=== PATIENT | female | born 1975 | race Two or more races ===

== ENCOUNTER 2020-11-28 14:01 | Emergency (ER) | payer OTHER | END 2020-11-28 14:51 | disposition home or self-care (01) | LOC: JVIRT 14:01 | DX: Z20.822 Contact with and (suspected) exposure to COVID-19 (principal) | CPT/HCPCS: C9803; G2012-GT; U0003 ==

== ENCOUNTER 2021-05-28 15:42 | Observation (INO) | payer OTHER ==
[2021-05-28 16:47] LABS: BASO % 0.9 % (0-2.0); EOS % 1.1 % (0-4.5); HEMOGLOBIN 12.3 GM/dl (10.7-15.3); LYMPH % 23.6 % (8-40); MCH 28.9 pg (25.7-33.7); MCHC 33.2 g/dl (32.0-36.0); MEAN CELL VOLUME 86.8 fl (80-96); MEAN PLT VOLUME 9.9 fl (7.5-11.1); MONO % 6.6 % (3.8-10.2); NEUT % 67.8 % (42.8-82.8); PLATELET COUNT 254 10^3/uL (134-434); RBC 4.26 M/mm3 (3.60-5.2); RDW 13.4 % (11.6-15.6); WHITE BLOOD COUNT 6.6 K/mm3 (4.0-10.8)
[2021-05-28 16:52] LABS: ALK PHOS 49 U/L (45-117); ANION GAP 9 MMOL/L (8-16); BILIRUBIN,TOTAL 0.6 mg/dl (0.2-1); CALCIUM 9.1 mg/dl (8.5-10); CHLORIDE 102 mmol/L (98-107); CO2 25 mmol/L (21-32); CREATININE 0.6 mg/dl (0.55-1.3); GLUCOSE,RANDOM 103 mg/dl (74-106); SGOT/AST 21 U/L (15-37); SGPT/ALT 12 U/L (13-61); SODIUM 136 mmol/L (136-145); TOT PROT 7.1 g/dl (6.4-8.2)
[2021-05-28 23:14] VITALS: BMI 22.7
[2021-05-28 23:49] LABS: MAGNESIUM 2.2 mg/dL (1.8-2.4)
[2021-05-28 23:53] LABS: PHOSPHOROUS 3.4 mg/dL (2.5-4.9)
[2021-05-29 07:24] LABS: BASO % 1.1 % (0-2.0); EOS % 1.6 % (0-4.5); HEMATOCRIT 35.6 % (32.4-45.2); LYMPH % 26.9 % (8-40); MCH 29.2 pg (25.7-33.7); MCHC 33.7 g/dl (32.0-36.0); MEAN CELL VOLUME 86.8 fl (80-96); MEAN PLT VOLUME 9.5 fl (7.5-11.1); NEUT % 62.4 % (42.8-82.8); PLATELET COUNT 230 10^3/uL (134-434); RBC 4.11 M/mm3 (3.60-5.2); RDW 14.3 % (11.6-15.6); WHITE BLOOD COUNT 6.3 K/mm3 (4.0-10.0)
[2021-05-29 09:25] LABS: MAGNESIUM 2.3 mg/dL (1.8-2.4)
[2021-05-29 09:29] LABS: PHOSPHOROUS 3.8 mg/dL (2.5-4.9)
[2021-05-29 09:51] LABS: ALBUMIN 3.4 g/dl (3.4-5.0); BILIRUBIN,TOTAL 0.5 mg/dL (0.2-1); BLOOD UREA NITROGEN 14.1 mg/dL (7-18); CALCIUM 8.7 mg/dL (8.5-10.1); CREATININE 0.7 mg/dL (0.55-1.3); TOT PROT 6.4 g/dl (6.4-8.2)
[2021-05-29 13:54] VITALS: BP 133/71; PULSE 80; TEMP 98.4
[2021-05-29 14:47] LABS: OPIATES, URI NEGATIVE (NEGATIVE); PHENCYCLIDINE,URINE NEGATIVE (NEGATIVE); URINE AMPHETAMINES NEGATIVE (NEGATIVE)
[2021-05-29 14:48] LABS: COCAINE, UR NEGATIVE (NEGATIVE)
[2021-05-29 14:49] LABS: URINE BENZODIAZEPINES NEGATIVE (NEGATIVE)
[2021-05-29 14:53] LABS: METHADONE, UR NEGATIVE (NEGATIVE); URINE BARBITURATES NEGATIVE (NEGATIVE)
== END 2021-05-29 17:57 | disposition home or self-care (01) ==
LOC: FER 15:42 → INTOOBSV 20:30 → UNDOADMOB 20:30 → J4S 20:30
PROVIDERS: ATTEND Internal Medicine
DX: I49.9 Cardiac arrhythmia, unspecified (principal); R00.2 Palpitations; R07.9 Chest pain, unspecified; Z82.49 Family history of ischemic heart disease and other diseases of the circulatory system
CPT/HCPCS: 36415; 71045-TC-FY; 80053; 80061; 80307; 81003; 81015; 82550; 83036; 83721; 83735; 84100; 84439; 84443; 84484; 84703; 85025; 93005; 93306-TC; 99285-25; C9803; G0378; U0003; U0005

== ENCOUNTER 2022-02-24 09:01 | Emergency (ER) | payer OTHER ==
[2022-02-24 09:09] VITALS: BP 125/96; PULSE 87; TEMP 98.6; BMI 23.4
== END 2022-02-24 09:40 | disposition home or self-care (01) ==
LOC: FER 09:01
DX: R07.0 Pain in throat (principal); J34.89 Other specified disorders of nose and nasal sinuses
CPT/HCPCS: 87804; 99283-25; C9803-CS; U0003; U0005

== ENCOUNTER 2022-11-23 13:36 | Day surgery (SDC) | payer OTHER ==
[2022-11-23] MEDS ORDERED: FERRIC CARBOXYMALTOSE 750 MG in SODIUM CHLORIDE 250 ML IVPB ONE (14:00)
[2022-11-23 14:20] VITALS: TEMP 98
[2022-11-23 16:23] VITALS: BP 110/62; PULSE 72; RESP 18
[2022-11-30] MEDS ORDERED: FERRIC CARBOXYMALTOSE 750 MG in SODIUM CHLORIDE 250 ML IVPB ONE (15:00)
== END 2022-11-23 16:14 | disposition home or self-care (01) ==
LOC: FINFUSION 13:36 → FM/S 13:36 → FINFUSION 16:14
PROC: 3E033GC Introduction of Other Therapeutic Substance into Peripheral Vein, Percutaneous Approach (ICD-10-PCS; principal; 2022-11-23)
DX: D50.9 Iron deficiency anemia, unspecified (principal)
CPT/HCPCS: 96365; J1439

== ENCOUNTER 2022-11-30 15:00 | Day surgery (SDC) | payer OTHER ==
[~2022-11-30 15:00] MED LIST: FERRIC CARBOXYMALTOSE 750 MG in SODIUM CHLORIDE 250 ML IVPB ONE
[2022-11-30 15:24] VITALS: RESP 18; TEMP 98
[2022-11-30 16:23] VITALS: BP 110/56; PULSE 86
== END 2022-11-30 16:24 | disposition home or self-care (01) ==
LOC: FINFUSION 15:00 → FM/S 15:02 → FINFUSION 16:24
PROC: 3E033GC Introduction of Other Therapeutic Substance into Peripheral Vein, Percutaneous Approach (ICD-10-PCS; principal; 2022-11-30)
DX: D50.9 Iron deficiency anemia, unspecified (principal)
CPT/HCPCS: 96365; J1439

== ENCOUNTER 2023-01-12 04:53 | Day surgery (SDC) | payer OTHER ==
[2023-01-07 11:24] VITALS: BMI 24.5
[2023-01-12 13:16] VITALS: TEMP 97.1
[2023-01-12 13:34] VITALS: BP 103/83; PULSE 54; RESP 18
== END 2023-01-12 13:50 | disposition home or self-care (01) ==
LOC: JASU-ENDO 04:53
PROVIDERS: ATTEND Student in an Organized Health Care Education/Training Program
PROC: 0DB78ZX Excision of Stomach, Pylorus, Via Natural or Artificial Opening Endoscopic, Diagnostic (ICD-10-PCS; 2023-01-12)
PROC: 0DB68ZX Excision of Stomach, Via Natural or Artificial Opening Endoscopic, Diagnostic (ICD-10-PCS; 2023-01-12)
PROC: 0DB48ZX Excision of Esophagogastric Junction, Via Natural or Artificial Opening Endoscopic, Diagnostic (ICD-10-PCS; 2023-01-12)
PROC: 0DB98ZX Excision of Duodenum, Via Natural or Artificial Opening Endoscopic, Diagnostic (ICD-10-PCS; principal; 2023-01-12 12:30)
DX: K21.00 Gastro-esophageal reflux disease with esophagitis, without bleeding (principal); K29.50 Unspecified chronic gastritis without bleeding
CPT/HCPCS: 81025; 88305-TC; 88342-TC

== ENCOUNTER 2023-11-17 14:51 | Day surgery (SDC) | payer OTHER ==
[2023-11-17] MEDS ORDERED: FERRIC CARBOXYMALTOSE 750 MG in SODIUM CHLORIDE 250 ML IVPB ONE (15:30)
[2023-11-17 16:50] VITALS: BP 130/68; PULSE 82; RESP 19; TEMP 98.1
== END 2023-11-17 16:30 | disposition home or self-care (01) ==
LOC: FM/S 14:51 → FINFUSION 14:51
PROC: 3E033GC Introduction of Other Therapeutic Substance into Peripheral Vein, Percutaneous Approach (ICD-10-PCS; principal; 2023-11-17)
DX: D50.9 Iron deficiency anemia, unspecified (principal)
CPT/HCPCS: 96365; J1439

== ENCOUNTER 2023-11-24 09:21 | Day surgery (SDC) | payer OTHER ==
[2023-11-24 09:54] VITALS: RESP 16; TEMP 97.8
[2023-11-24] MEDS ORDERED: FERRIC CARBOXYMALTOSE 750 MG in SODIUM CHLORIDE 250 ML IVPB ONE (11:00)
[2023-11-24 12:21] VITALS: BP 124/86; PULSE 86
== END 2023-11-24 12:21 | disposition home or self-care (01) ==
LOC: FINFUSION 09:21 → FM/S 09:24 → FINFUSION 12:21
PROC: 3E033GC Introduction of Other Therapeutic Substance into Peripheral Vein, Percutaneous Approach (ICD-10-PCS; principal; 2023-11-24)
DX: D50.9 Iron deficiency anemia, unspecified (principal)
CPT/HCPCS: 96365; J1439

== ENCOUNTER 2023-12-02 08:59 | Day surgery (SDC) | payer OTHER ==
[2023-11-25 16:05] VITALS: BMI 24.5
[2023-12-02] MEDS ORDERED: PROPOFOL 20 ML ONE (09:45)
[2023-12-02] MEDS ORDERED: MIDAZOLAM HCL 2 MG/2 ML SINGLE DOSE VIAL ONE (09:45)
[2023-12-02] MEDS ORDERED: BUPIVACAINE HCL/PF 0.25% (2.5MG/ML) 10 ML VIAL ONE (10:27)
[2023-12-02] MEDS ORDERED: ePHEDrine SULFATE 50 MG/1 ML AMPULE ONE (11:12)
[2023-12-02] MEDS: BUPIVACAINE HCL/PF 0.25% (2.5MG/ML) 10 ML VIAL IJ ONE (12:10)
[2023-12-02] MEDS ORDERED: DEXAMETHASONE SOD PHOSPHATE 4 MG/1 ML VIAL ONE (12:26)
[2023-12-02] MEDS ORDERED: KETOROLAC TROMETHAMINE 30 MG/1 ML VIAL ONE (12:26)
[2023-12-02] MEDS ORDERED: ONDANSETRON 4 MG/2 ML VIAL ONE ×2 (12:26→12:59)
[2023-12-02] MEDS ORDERED: ceFAZolin SODIUM 1 GM VIAL ONE (12:26)
[2023-12-02] MEDS ORDERED: oxyCODONE HCL 5 MG TABLET PO PRN (12:32)
[2023-12-02] MEDS ORDERED: LACTATED RINGERS SOLUTION 1,000 ML IV SCH (12:45)
[2023-12-02] MEDS ORDERED: ACETAMINOPHEN INJECTION 100 ML IVPB ONE (12:47)
[2023-12-02] MEDS: ACETAMINOPHEN 1000 MG/100 ML BAG IVPB ONE (12:50)
[2023-12-02] MEDS ORDERED: FENTANYL CITRATE/PF 50 MCG/ML VIAL ONE (12:59)
[2023-12-02] MEDS: ONDANSETRON 4 MG/2 ML VIAL IVPUSH PRN (13:00)
[2023-12-02 13:56] VITALS: PULSE 82; RESP 16; TEMP 97.5
[2023-12-02] MEDS: oxyCODONE HCL 5 MG TABLET ONE (14:10)
[2023-12-02 15:34] VITALS: BP 111/67
== END 2023-12-02 14:35 | disposition home or self-care (01) ==
LOC: FASU 08:59
PROVIDERS: ATTEND Orthopaedic Surgery Sports Medicine
PROC: 0QBM0ZX Excision of Left Tarsal, Open Approach, Diagnostic (ICD-10-PCS; principal; 2023-12-02 11:01)
DX: Q66.82 Congenital vertical talus deformity, left foot (principal)
CPT/HCPCS: 28238; C1713; 73610-TC-LT-FY; 73630-TC-LT; 81025; 88304-TC; 94760; J0131

== ENCOUNTER 2024-11-28 11:41 | Day surgery (SDC) | payer OTHER ==
[2024-11-28] MEDS: FERRIC CARBOXYMALTOSE 750 MG in SODIUM CHLORIDE 250 ML IVPB ONE (12:10)
[2024-11-28 15:19] VITALS: BP 120/65; PULSE 86; RESP 16; TEMP 98.2
== END 2024-11-28 13:07 | disposition home or self-care (01) ==
LOC: FINFUSION 11:41 → FM/S 11:43 → FINFUSION 13:07
PROC: 3E033GC Introduction of Other Therapeutic Substance into Peripheral Vein, Percutaneous Approach (ICD-10-PCS; principal; 2024-11-28)
DX: D50.9 Iron deficiency anemia, unspecified (principal)
CPT/HCPCS: J1439